=== PATIENT | male | born 1935 | race African-American/Black ===

== ENCOUNTER 2017-10-28 19:12 | Emergency (ER) | payer OTHER ==
[~2017-10-28] VITALS: Ht 170.2 cm; Wt 80.0 kg
[2017-10-28] MEDS ORDERED: METO-396 PO (19:19)
[2017-10-28] MEDS ORDERED: NITR0.4T49 SL (19:19)
[2017-10-28 20:07] LABS: BASOPHILS % 0.7 % (0.0-2.0); EOSINOPHILS % 6.7 % (0.0-5.0); HEMATOCRIT. 40.6 % (42.0-52.0); HEMOGLOBIN. 13.1 g/dL (14.0-18.0); LYMPHOCYTES % 27.2 % (20.0-50.0); MEAN CORPUSCULAR HEMOGLOBIN 27.8 pg (28.0-32.0); MEAN CORPUSCULAR VOLUME 86.2 fL (80.0-94.0); MEAN PLATELET VOLUME 8.3 fl (7.4-10.4); NEUTROPHILS % 56.4 % (40.0-76.0); PLATELET 168 x1000/uL (130-400); RED BLOOD CELL COUNT 4.71 mill/uL (4.7-6.1); RED CELL DISTRIBUTION WIDTH 15.3 % (11.6-14.6)
[2017-10-28 20:14] LABS: CHLORIDE 99 mEq/L (98-107)
[2017-10-28 20:16] LABS: PROTHROMBIN TIME 10.5 sec (9.1-11.1)
[2017-10-29] MEDS ORDERED: MORPHINE SULFATE 10 MG/ML CPJ IM ONE
[2017-10-29] MEDS ORDERED: NITROGLYCERIN 0.4MG TABLET SL SL ONE (00:30)
[2017-10-29] MEDS ORDERED: HYDRALAZINE 20MG/ML VIAL IV ONE (01:30)
[2017-10-29] MEDS ORDERED: LABETALOL 5MG/ML SYR 20 MG/4 ML SYRINGE IV ONE (05:30)
[2017-10-29] MEDS ORDERED: NITROGLYCERIN OINT 1GM/INCH UDPKT TD ONE (05:30)
[2017-10-29 06:22] VITALS: BP 153/61
== END 2017-10-29 06:37 | disposition short-term general hospital (02) ==
LOC: ER 19:44
DX: I21.4 Non-ST elevation (NSTEMI) myocardial infarction (principal); I20.0 Unstable angina; I16.1 Hypertensive emergency; Z88.0 Allergy status to penicillin; Z88.5 Allergy status to narcotic agent; Z79.899 Other long term (current) drug therapy
CPT/HCPCS: 36415; 71045; 80053; 83880; 84484; 85025; 85610; 93005; 96374; 96375; 99291; J0360; J2270; J3490